=== PATIENT | male | born 1940 | race Caucasian/White ===

== ENCOUNTER → 2018-08-11 | Outpatient (CLI) | payer MEDICARE ==
[~2018-08-11] MED LIST: ACETAMINOPHEN 325 MG TAB As Ordered ONE; ASPI81TA85 PO; CENTCHW3 PO; FERR1TAB8 PO; LISI20TA PO; PRAV40TA2 PO; TAMS1CAP17 PO
--- NOTE | 2018-08-11 12:47 | REP ---
Left chest ultrasound: History: Left chest sonography evaluation prior to anticipated left thoracentesis. History of left pleural effusion. No comparison imaging. Findings: A large left pleural effusion is seen on the posterior chest wall scanning on the left side. Left thoracentesis under ultrasound guidance will proceed. Electronically Signed by Ad Le MD 08/11/2018 12:39 P
--- NOTE | 2018-08-11 19:15 | REP ---
Ultrasound guided left thoracentesis The procedure was performed under the direct supervision of Dr. Le. The risks and benefits of the procedure were explained to the patient and informed consent was obtained. The left pleural effusion was localized using ultrasound guidance. The skin was prepped and draped in a sterile fashion. 1% lidocaine was used as a local anesthetic. An 8-Irish multi side-hole catheter was inserted using trocar technique. 810 ml of yellow fluid was withdrawn with a sample sent to the lab for analysis. The patient tolerated the procedure well and there were no immediate complications. After the appropriate amount of monitored convalescence the patient was discharged from the department. Reviewed by BELINDA Schaefer 08/11/2018 04:30 P Electronically Signed by Ad Le MD 08/11/2018 07:05 P
--- NOTE | 2018-08-12 09:57 | REP ---
Chest x-ray: Two views. History: Post left thoracentesis radiographs. Comparison films have been retrieved dated July 30, 2018. Findings: The left pleural effusion is improved. There is slight blunting of the left lateral pleural angle. There is no evidence of pneumothorax or other complication. There is a ill-defined mass-like opacity projecting in the left upper lobe perihilar region. This corresponds to the CT findings from [facility] June 13, 2018. There is a nodular opacity in the right lower lung field peripherally which corresponds with the calcific pleural plaquing seen on the prior CT study. Impression: Mass-like opacity left mid lung zone. Improved left pleural effusion. No complication seen. Electronically Signed by Ad Le MD 08/12/2018 05:30 P
== END ==
LOC: M RADPRO 10:10
PROVIDERS: ATTEND Internal Medicine Hematology & Oncology
DX: C45.9 Mesothelioma, unspecified (principal); Z79.82 Long term (current) use of aspirin; Z79.899 Other long term (current) drug therapy

== ENCOUNTER → 2018-10-15 | Outpatient (CLI) | payer MEDICARE ==
[~2018-10-15] MED LIST changes: -ACETAMINOPHEN 325 MG TAB As Ordered ONE
--- NOTE | 2018-10-15 11:38 | REP ---
Chest two views HISTORY: Pleural effusion Comparison: 08/11/2018 A large left pleural effusion is present. Increased density is present in the left lower lobe consistent with atelectasis or infiltrate. The right lung is clear. The heart is normal in size. The pulmonary vasculature is normal in appearance. The bony structure is intact. IMPRESSION: 1. Large left pleural effusion. 2. Left lower lobe atelectasis or infiltrate. Electronically Signed by Gene Fung MD 10/15/2018 11:30 A
== END ==
LOC: M SMT 08:48
PROVIDERS: ATTEND Thoracic Surgery (Cardiothoracic Vascular Surgery)
DX: J90 Pleural effusion, not elsewhere classified (principal)

== ENCOUNTER → 2018-10-22 | Outpatient (CLI) | payer MEDICARE ==
[2018-10-22 14:24] LABS: INR 0.96; PROTHROMBIN TIME 12.9 SECONDS (12.1-14.4)
[2018-10-22 14:50] LABS: CALCIUM LEVEL 8.9 MG/DL (8.8-10.2); CREATININE FOR GFR 1.86 MG/DL (0.70-1.30); GLOMERULAR FILTRATION RATE 37.8 (>42); POTASSIUM SERUM 4.5 MEQ/L (3.5-5.1)
--- NOTE | 2018-10-22 14:55 | REP ---
Chest CT without contrast: History: Pleural effusion. Comparison chest CT study is from [facility] dated June 13, 2018. Comparison is made with recent chest x-ray October 15, 2018 showing a large left pleural effusion. CT findings: There is bilateral calcific pleural thickening consistent with previous asbestos exposure. This is unchanged. There is no evidence of right-sided pleural effusion. No right-sided pulmonary parenchymal mass lesion is seen. No pericardial effusion is noted. Vascular calcifications noted. No mediastinal lymphadenopathy is seen. The previously noted left pleural effusion has increased in size. There is evidence of parietal pleural thickening at the lower portion of the hemithorax on the left. There is considerable volume loss in the left lung with atelectasis in the left lower lobe and lingula. There is some aeration in the upper lobe. The effusion is large. There are scattered parenchymal calcifications in the collapsed lingula and in the left upper lobe. The left lower lobe and lingular bronchi appear coapted or narrowed. No definite mass or adenopathy is seen in the left hilus however. No adrenal mass is observed. The patient is apparently status post aortic stent graft in the abdomen. No liver lesion is seen. Impression: The left pleural effusion has enlarged with progressive collapse in the lower lobe and lingular segment of the upper lobe. There is a multifocal airway narrowing at the left hilar and infrahilar level. No definite mass lesion. Bilateral calcific pleural plaquing. There is some parietal pleural thickening. Electronically Signed by Ad Le MD 10/22/2018 02:59 P
[2018-10-22 15:55] LABS: HEMATOCRIT 39.6 % (42.0-52.0); HEMOGLOBIN 12.2 g/dl (13.5-17.5); MEAN CORPUSCULAR HEMOGLOBIN 30.4 pg (27.0-33.0); MEAN CORPUSCULAR HGB CONC 30.8 g/dl (32.0-36.5); MEAN CORPUSCULAR VOLUME 98.8 fl (80.0-96.0); PLATELET COUNT, AUTOMATED 256 10^3/uL (150-450); RED BLOOD COUNT 4.01 10^6/uL (4.30-6.10); WHITE BLOOD COUNT 7.1 10^3/uL (4.0-10.0)
== END ==
LOC: M RAD 13:19
PROVIDERS: ATTEND Thoracic Surgery (Cardiothoracic Vascular Surgery)
DX: C45.9 Mesothelioma, unspecified (principal); J91.0 Malignant pleural effusion; J98.19 Other pulmonary collapse; Z79.82 Long term (current) use of aspirin; Z95.828 Presence of other vascular implants and grafts

== ENCOUNTER 2018-10-24 10:36 | Day surgery (SDC) | payer MEDICARE ==
[~2018-10-24] VITALS: Ht 160 cm; Wt 73.4 kg
[~2018-10-24 10:36] MED LIST changes: +MUPIROCIN 2% OINT 22 GM TUBE TOP ONE
[2018-10-24] MEDS ORDERED: MIDAZOLAM INJ 2 MG/2 ML VIAL (J2250) As Ordered ONE (12:22)
[2018-10-24] MEDS: MIDAZOLAM INJ 2 MG/2 ML VIAL (J2250) IV SCH ×2 (12:34→12:37)
[2018-10-24] MEDS ORDERED: LIDOCAINE 1% MDV 20ML VIAL As Ordered ONE (12:36)
[2018-10-24 13:17] VITALS: BP 159/81
--- NOTE | 2018-10-24 14:38 | REP ---
Clinical: Pleural effusion. Comparison: 10/15/2018. Findings: Chest tube identified terminating along the medial upper left hemithorax. Moderate hydropneumothorax with small amount of layering pleural fluid is appreciated along with underlying parenchymal consolidation/atelectasis. The right hemithorax demonstrates trace right basilar atelectasis and small right pleural effusion. Mediastinum and cardiac silhouette are incompletely evaluated due to overlying opacities. Impression: 1. Chest tube terminating along the medial upper left hemithorax with moderate hydropneumothorax containing small amount of layering pleural fluid. Underlying left lower lobe atelectasis/consolidations. 2. Minimal right basilar atelectasis and small right pleural effusion. Electronically Signed by Shaheed Gracia MD 10/24/2018 02:29 P
--- NOTE | 2018-10-24 15:38 | RO ---
DATE OF PROCEDURE: 10/24/2018 PREPROCEDURE DIAGNOSIS: Malignant pleural effusion. POSTPROCEDURE DIAGNOSIS: Malignant pleural effusion. PROCEDURE: Insertion of a tunneled PleurX catheter left side. SURGEON: Dr. Mati Montgomery FOUNDRY TECHNICIAN: ANESTHESIA: FINDINGS: 1650 mL of sintia fluid was removed from the chest. DESCRIPTION OF PROCEDURE: Under satisfactory moderate sedation achieved with 4 mg of Versed, the patient was prepped and draped in the usual sterile fashion. Entry and exit points were marked. The entry and exit points were then infiltrated with 1% lidocaine as was a tunnel connecting the two points. Two incisions were made at both points. A exploratory needle was placed into the chest and fluid was obtained. A wire was then placed. Tunnel was then created between the exit and entry points. The PleurX catheter was pulled through the tunnel. A Peel-Away introducer was then placed after dilating the tract. PleurX catheter was then placed through the Peel-Away Introducer and appropriately positioned. Entry site was closed with running pleural Monopril subcuticular suture and the exit site was closed with one #2-0 silk suture to anchor the catheter. Catheter was then drained of 1650 mL of the above fluid. It was send for requisite studies including cytologies, bacterologies, hematologies, and chemistries. The patient tolerated the procedure well and chest x-ray is pending.
== END 2018-10-24 14:01 | disposition home or self-care (01) ==
LOC: M OPP 10:36
PROVIDERS: ATTEND Thoracic Surgery (Cardiothoracic Vascular Surgery)
DX: C45.0 Mesothelioma of pleura (principal); J91.0 Malignant pleural effusion; R06.02 Shortness of breath; E78.00 Pure hypercholesterolemia, unspecified; I10 Essential (primary) hypertension; M12.9 Arthropathy, unspecified; D64.9 Anemia, unspecified; Z72.0 Tobacco use
CPT/HCPCS: 32550; 71045; 83615; 88108; 88305; 88313; J0690; J2250

== ENCOUNTER → 2018-10-24 | Outpatient (REF) | payer MEDICARE | LOC: M LAB REF 17:27 | PROVIDERS: ATTEND Thoracic Surgery (Cardiothoracic Vascular Surgery) | DX: C45.0 Mesothelioma of pleura (principal); J91.0 Malignant pleural effusion ==

== ENCOUNTER → 2018-10-30 | Outpatient (CLI) | payer MEDICARE ==
[~2018-10-30] MED LIST changes: -MUPIROCIN 2% OINT 22 GM TUBE TOP ONE
--- NOTE | 2018-10-30 13:41 | REP ---
CHEST X-RAY: Three views presented. HISTORY: Pleural effusion. Comparison chest x-ray portable exam from October 24, 2018. FINDINGS: A PleurX catheter is noted in place on the left. There is blunting and pleural thickening along the lateral aspect of the left chest inferiorly. There is a small residual left apical pneumothorax and some air is seen anteriorly on the lateral film. This is decreased from the prior study. There is volume loss in the left base with some atelectasis. Right lung is clear. No right pleural effusion is noted. The patient is status post aortic stent graft placement. IMPRESSION: PleurX catheter in place. Small left sided hydropneumothorax. Volume loss and atelectasis left base. Electronically Signed by Ad Le MD 10/30/2018 06:49 P
== END ==
LOC: M SMT 10:29
PROVIDERS: ATTEND Thoracic Surgery (Cardiothoracic Vascular Surgery)
DX: J90 Pleural effusion, not elsewhere classified (principal)

== ENCOUNTER → 2019-01-08 | Outpatient (CLI) | payer MEDICARE ==
--- NOTE | 2019-01-08 09:42 | REP ---
PA and lateral chest: Comparison is 12/08/2018. The there is a left thoracotomy tube, unchanged in position. There is a large opacity in the mid and lower left hemithorax, unchanged. The left upper lobe remains clear, unchanged. Right lung remains clear, unchanged. Cardiac size and left hilus cannot be assessed, they are obscured by the large opacity in the left lung. The right hilus, mediastinum, skeletal structures are unremarkable. Impression: No interval change. The left thoracotomy tube is unchanged. The large opacity inferiorly in the left lung is unchanged. Electronically Signed by Eduardo Narvaez MD 01/08/2019 09:34 A
== END ==
LOC: M SMT 08:35
PROVIDERS: ATTEND Thoracic Surgery (Cardiothoracic Vascular Surgery)
DX: J90 Pleural effusion, not elsewhere classified (principal)

== ENCOUNTER 2019-01-14 12:19 | Day surgery (SDC) | payer MEDICARE ==
[~2019-01-14] VITALS: Ht 165.1 cm; Wt 71.2 kg
[~2019-01-14 12:19] MED LIST changes: +D5W/0.9% SODIUM CHLORIDE 1,000 ML IV SCH; +MUPIROCIN 2% OINT 22 GM TUBE TOP ONE
[2019-01-14] MEDS ORDERED: MIDAZOLAM INJ 2 MG/2 ML VIAL (J2250) As Ordered ONE ×2 (13:51→14:06)
[2019-01-14] MEDS ORDERED: LIDOCAINE 1% MDV 20ML VIAL As Ordered ONE (13:52)
[2019-01-14] MEDS ORDERED: MIDAZOLAM INJ 2 MG/2 ML VIAL (J2250) IV PRN (14:15)
[2019-01-14 14:59] VITALS: BP 158/80
--- NOTE | 2019-01-15 07:40 | RO ---
DATE OF PROCEDURE: 01/14/2019 PREPROCEDURE DIAGNOSES: Retained PleurX catheter. Mesothelioma. POSTPROCEDURE DIAGNOSIS: Retained PleurX catheter. PROCEDURE: Removal of PleurX catheter. SURGEON: Dr. Mati Montgomery FENDER FINISHER: ANESTHESIA: DESCRIPTION OF PROCEDURE: Under satisfactory moderate sedation achieved with 2 mg of Versed, patient was prepped and draped in the usual sterile fashion. The sewing collar of the catheter was located, and incision was made longitudinally over the sewing collar. Catheter was dissected out, seized with Allis forceps, and elevated to the skin level. Remaining adhesive tissue was shaved off with a scalpel. The distal end of the catheter was removed in toto followed by the proximal end of the catheter. The subcutaneous tissue was closed with running #3-0 Vicryl suture, and the skin was closed with running #4-0 Monocryl subcuticular suture. Patient tolerated procedure well and left the operating room in satisfactory condition for the recovery room.
== END 2019-01-14 15:07 | disposition home or self-care (01) ==
LOC: M SDC 12:19
PROVIDERS: ATTEND Thoracic Surgery (Cardiothoracic Vascular Surgery)
DX: Z46.82 Encounter for fitting and adjustment of non-vascular catheter (principal); C45.0 Mesothelioma of pleura; J91.0 Malignant pleural effusion; I10 Essential (primary) hypertension; E78.00 Pure hypercholesterolemia, unspecified; D64.9 Anemia, unspecified; F17.210 Nicotine dependence, cigarettes, uncomplicated; Z79.899 Other long term (current) drug therapy
CPT/HCPCS: 32552; J0690; J2250

== ENCOUNTER → 2019-01-19 | Outpatient (CLI) | payer MEDICARE ==
[~2019-01-19] MED LIST changes: -D5W/0.9% SODIUM CHLORIDE 1,000 ML IV SCH; -MUPIROCIN 2% OINT 22 GM TUBE TOP ONE
--- NOTE | 2019-01-19 17:19 | REP ---
Clinical: Mesothelioma Technique: Axial noncontrast images from the thoracic inlet to the upper abdomen with coronal and sagittal re-formations. Comparison: 10/22/2018. Findings: A partially loculated moderate left pleural effusion with surrounding thick rind is decreased in size when compared to prior examination. Associated ipsilateral volume loss with areas of parenchymal consolidation/mass involving the left upper lobe/lingula and left lower lobe are suggested and cannot be differentiated. Scattered partially calcified bilateral pleural plaques and bilateral chronic interstitial changes remain stable. Stable reactive adenopathy suggested at the mediastinum and cl. Atherosclerotic changes to the thoracic aorta and coronary arteries noted without aortic aneurysm or cardiomegaly. No pericardial effusion. Surrounding osseous structures appear intact without focal abnormality. Limited upper abdomen demonstrates abdominal aortic stent. The bilateral adrenal glands demonstrate low density hyperplastic type changes. Impression: 1. Moderate partially loculated left sided effusion with thick rind is decreased from prior examination. Multiple left-sided areas of consolidation/mass and atelectasis again noted and similar to prior. Electronically Signed by Shaheed Gracia MD 01/19/2019 05:11 P
== END ==
LOC: M RAD 16:36
PROVIDERS: ATTEND Thoracic Surgery (Cardiothoracic Vascular Surgery)
DX: C45.0 Mesothelioma of pleura (principal); J90 Pleural effusion, not elsewhere classified; I70.0 Atherosclerosis of aorta; I25.10 Atherosclerotic heart disease of native coronary artery without angina pectoris

== ENCOUNTER → 2019-08-18 | Outpatient (CLI) | payer MEDICARE ==
[~2019-08-18] MED LIST changes: +ACET-683 PO; +BREO1INH3 PO; +FERR325T3 PO; +FLOM0.4C39 PO; +INCR1INH INH; -LISI20TA PO; +LISI20TA19 PO; +MULTCAP PO; +NICO7DIS24 TD
--- NOTE | 2019-08-19 08:24 | REP ---
ULTRASOUND LEFT PLEURAL SPACE: Real-time sonographic evaluation of the left pleural space performed posteriorly and inferiorly. There is a small amount of septated fluid at this location. Approximate diameter is 5 cm. Electronically Signed by Eduardo Weiss MD 08/19/2019 10:44 P
== END ==
LOC: M IRPRO 11:17
DX: J90 Pleural effusion, not elsewhere classified (principal)

== ENCOUNTER → 2019-08-20 | Outpatient (CLI) | payer MEDICARE ==
--- NOTE | 2019-08-20 10:37 | REPPI ---
CHEST, TWO VIEWS: Two views of the chest are performed and compared to a prior study 01/08/2019. Left apical pleural thickening has mildly increased. There is increased parenchymal consolidative opacity in the left mid and lower lung zones as well as increased pleural-based density in these regions. Right lung remains clear. Heart size is not well evaluated. There are mild degenerative changes of the spine. IMPRESSION: Increased pleural and parenchymal opacity on the left when compared to the prior study of 01/08/2019. Electronically Signed by Eduardo Weiss MD 08/21/2019 11:21 A
== END ==
LOC: M PLAIMG 09:33
PROVIDERS: ATTEND Thoracic Surgery (Cardiothoracic Vascular Surgery)
DX: C45.0 Mesothelioma of pleura (principal); J91.0 Malignant pleural effusion